=== PATIENT | female | born 1985 | race African-American/Black ===

== ENCOUNTER 2020-11-27 09:14 | Emergency (ER) | payer BC ==
[~2020-11-27] VITALS: Ht 170.2 cm; Wt 111.1 kg
[~2020-11-27 09:14] MED LIST: MACROBID 100 M100 M2 PO; NOHOMEMEDICATIONS
[2020-11-27 10:27] VITALS: BP 122/68
--- NOTE | 2020-11-28 09:58 | EKG ---
[place] [address] ELECTROCARDIOGRAM REPORT Name: CARISSA FLYNN Room: [facility]#: [id number] Admission: 11/27/20 Attend Phys: Discharge: 11/27/20 Date of : 89 Date of Service: 11/27/20 0917 Report #: [id number] THIS REPORT FOR: //name// [facility] ED Test Date: 2020-11-27 Test Time: 09:17:19 Pat Name: CARISSA FLYNN Department: Room: Gender: F Fur Farmer: [place] : 1985 Requested By: Paul Mccarthy Order Number: [id number] Thomas MD: Braulio Mckeon Measurements Intervals [place] Rate: 87 P: 46 MD: 151 QRS: -7 QRSD: 75 T: 2 QT: 342 QTc: 412 Interpretive Statements Sinus rhythm Inferior infarct, old Baseline wander in lead(s) II,III,aVF No previous ECG available for comparison Electronically Signed On 11-28-2020 9:57:44 CDT by Braulio Mckeon [email or web address] <ELECTRONICALLY SIGNED> By: Braulio Mckeon MD, [facility] 11/28/20 0957 6 6 Braulio Mckeon MD, [facility] /EPI
== END 2020-11-27 10:28 | disposition home or self-care (01) ==
LOC: M.ERS 09:14
DX: J06.9 Acute upper respiratory infection, unspecified (principal); Z20.822 Contact with and (suspected) exposure to COVID-19

== ENCOUNTER 2020-12-09 12:53 | Emergency (ER) | payer BC ==
[~2020-12-09] VITALS: Ht 170.2 cm; Wt 111.1 kg
[2020-12-09] MEDS ORDERED: FLEXERIL PO (15:40)
[2020-12-09] MEDS ORDERED: IBUPROFEN 800800 M1 PO (15:40)
[2020-12-09] MEDS ORDERED: MEDROLDOSEPACK PO (15:40)
[2020-12-09 15:48] VITALS: BP 124/68
== END 2020-12-09 15:49 | disposition home or self-care (01) ==
LOC: M.ERS 12:53
DX: S76.811A Strain of other specified muscles, fascia and tendons at thigh level, right thigh, initial encounter (principal); F12.90 Cannabis use, unspecified, uncomplicated; X50.1XXA Overexertion from prolonged static or awkward postures, initial encounter; Y93.89 Activity, other specified; Y92.89 Other specified places as the place of occurrence of the external cause; Y99.8 Other external cause status